=== PATIENT | male | born 1975 | race Caucasian/White ===

== ENCOUNTER → 2023-12-19 07:19 | Outpatient (REF) | payer BC, SELFPAY ==
--- NOTE | 2023-12-19 12:50 | EEG.RPT ---
Electroencephalogram Report
Recording
Date of EE12/19/23
Length of EEG recordin minutes
Done with Video Recording: Yes
Patient Status: Outpatient
Recording Conditions: Awake and Drowsy
Hyperventilation Performed: Yes
Photic Stimulation Performed: Yes
Report
LESS THAN 1 HOUR EEG INTERPRETATION:
Unremarkable EEG for age
CLINICAL CORRELATION:
A normal EEG does not rule out a diagnosis of epilepsy.� If clinical suspicion for seizure persists, a prolonged recording may be warranted.
Clinical correlation is advised.
METHODS:
A 21 channel digitized electroencephalogram (EEG) was performed using the 10/20 international system of electrode placement and one-lead of ECG recorded. The AKT quantitative EEG system was utilized. Study lasted 29 minutes.
ELECTROENCEPHALOGRAPHER IMPRESSION(S):
Quality of study
Good
Background
There was an unremarkable anterior-posterior voltage gradient of alpha frequency.
Normal posterior dominant rhythm 9-10 hz seen.
With eye opening the background activity changed to a low voltage mixture of frequencies.
There were no significant asymmetries of background activity noted.
Sleep
Drowsiness present
Stage 1 present
Hyperventilation
No activation
Photic Stimulation
No activation
ECG
Normal sinus rhythm
== END ==
LOC: RCS 07:19
PROVIDERS: ATTENDING PHYSICIAN Internal Medicine
DX: G43.009 Migraine without aura, not intractable, without status migrainosus (principal); R20.0 Anesthesia of skin; R20.2 Paresthesia of skin
CPT/HCPCS: 72050; 95816

== ENCOUNTER → 2023-12-22 15:07 | Outpatient (REF) | payer BC, SELFPAY | LOC: PAVMRI 15:07 | PROVIDERS: ATTENDING PHYSICIAN Psychiatry & Neurology Neurology; FAMILY PHYSICIAN Internal Medicine | DX: H93.A9 Pulsatile tinnitus, unspecified ear (principal) | CPT/HCPCS: 70544 ==

== ENCOUNTER → 2024-09-25 12:50 | Outpatient (REF) | payer BC, SELFPAY | LOC: HWRAD 12:50 | PROVIDERS: ATTENDING PHYSICIAN Internal Medicine | DX: R10.10 Upper abdominal pain, unspecified (principal) | CPT/HCPCS: 76700 ==

== ENCOUNTER → 2024-09-25 17:40 | Outpatient (REF) | payer BC, SELFPAY | LOC: MRI 3T 17:40 | PROVIDERS: ATTENDING PHYSICIAN Urology; FAMILY PHYSICIAN Internal Medicine | DX: R97.20 Elevated prostate specific antigen [PSA] (principal) | CPT/HCPCS: 72197; A9575 ==

== ENCOUNTER → 2025-03-12 13:48 | Outpatient (REF) | payer BC, SELFPAY | LOC: RAD 13:48 | PROVIDERS: ATTENDING PHYSICIAN Nurse Practitioner; FAMILY PHYSICIAN Internal Medicine | DX: R10.33 Periumbilical pain (principal); R10.10 Upper abdominal pain, unspecified; K51.30 Ulcerative (chronic) rectosigmoiditis without complications | CPT/HCPCS: 74177; Q9967 ==

== ENCOUNTER 2025-06-04 06:23 | Day surgery (SDC) | payer BC, SELFPAY | END 2025-06-04 12:08 | disposition home or self-care (01) | LOC: GI 06:23 | PROVIDERS: ATTENDING PHYSICIAN Internal Medicine Gastroenterology | DX: Z12.11 Encounter for screening for malignant neoplasm of colon (principal); K51.50 Left sided colitis without complications; K64.8 Other hemorrhoids; R10.13 Epigastric pain; K44.9 Diaphragmatic hernia without obstruction or gangrene; K31.89 Other diseases of stomach and duodenum | CPT/HCPCS: 45380; 43239; 88305; 88342 ==